=== PATIENT | female | born 1985 | race Caucasian/White ===

== ENCOUNTER 2017-04-26 07:58 | Emergency (ER) | payer BC ==
[2017-04-26 08:02] VITALS: BP 132/79; PULSE 98; TEMP 99.1; BMI 24.4
--- NOTE | 2017-04-26 08:45 | PDOC ---
History of Present Illness - General Chief Complaint: Redness To Affected Area Stated Complaint: EYE SWOLLEN Time Seen by Provider: 04/26/17 08:10 History Source: Patient Exam Limitations: No Limitations - History of Present Illness Initial Comments: 04/26/17 08:43 Patient is a 31 y/o female with no significant medical history, currently on no medication. Presents to the ER with swelling to the left side of the face. Patient states 2 days ago she used a facial scrub and mask from [employer] developed an erythematous area to left lateral nose woke up today with swelling under the left eye and left side of the face. She denies any difficulty swallowing, no chest pain or shortness of breath. Past Medical History: [Denies]. Allergies: No known allergies Medications: [None] Family History: Non-contributory Social History: Denies smoking, alcohol use, or IVDU Vital signs on arrival are [notable for pulse of 96.] Review of Systems GENERAL/CONSTITUTIONAL: [No fever or chills. No weakness. No weight change.] HEAD, EYES, EARS, NOSE AND THROAT: [No change in vision. No ear pain or discharge. No sore throat. Swelling to left side of face under I extending into upper cheek. There is a 3 cm skin avulsion to the left lateral nose. ] CARDIOVASCULAR: [No chest pain or shortness of breath.] RESPIRATORY: [No cough, wheezing, or hemoptysis.] GASTROINTESTINAL: [No nausea, vomiting, diarrhea or constipation. No rectal bleeding.] GENITOURINARY: [No dysuria, frequency, or change in urination.] MUSCULOSKELETAL: [No joint or muscle swelling or pain. No neck or back pain.] SKIN AND BREASTS: [No rash or easy bruising.] NEUROLOGIC: [No headache, vertigo, loss of consciousness, or loss of sensation.] PSYCHIATRIC: [No depression or anxiety.] ENDOCRINE: [No increased thirst. No abnormal weight change.] HEMATOLOGIC/LYMPHATIC: [No anemia, easy bleeding, or history of blood clots.] ALLERGIC/IMMUNOLOGIC: [No hives or skin allergy. No latex allergy.] Physical Exam: GENERAL: [The patient is awake, alert, and fully oriented, in no acute distress. ] HEAD: [Normal with no signs of trauma.] EYES: [Pupils equal, round and reactive to light, extraocular movements intact, sclera anicteric, conjunctiva clear.] ENT: [Ears normal, nares patent, oropharynx clear without exudates. Moist mucous membranes. No uvula deviation] NECK: [Normal range of motion, supple without lymphadenopathy, JVD, or masses.] LUNGS: [Breath sounds equal, clear to auscultation bilaterally. No wheezes, and no crackles.] HEART: [Regular rate and rhythm, normal S1 and S2 without murmur, rub or gallop. ] ABDOMEN: [Soft, nontender, normoactive bowel sounds. No guarding, no rebound. No masses. No bruising or abrasions] RECTAL : [Guaiac negative, normal rectal tone.] MUSCULOSKELETAL: [Normal range of motion, no edema. No clubbing or cyanosis. No cords, erythema, or tenderness. ] NEUROLOGICAL: [Cranial nerves II through XII grossly intact. Normal speech, normal gait.] PSYCH: [Normal mood, normal affect.] SKIN: Swelling to left side of face under I extending into upper cheek. There is a 3 cm skin avulsion to the left lateral nose Past History - Past Medical History Allergies/Adverse Reactions: Allergies Allergy/AdvReac Type Severity Reaction Status Date / Time Penicillins Allergy Swelling Verified 04/26/17 08:02 Home Medications: Ambulatory Orders Clindamycin [Cleocin -] 300 mg PO TID #30 capsule 04/26/17 Venlafaxine HCl [Effexor -] 25 mg PO ASDIR 04/26/17 COPD: No Other medical history: NONE - Suicide/Smoking/Psychosocial Hx Smoking Status: No Smoking History: Current every day smoker Number of Cigarettes Smoked Daily: 3 Information on smoking cessation initiated: Yes 'Breaking Loose' booklet given: 04/26/17 Hx Alcohol Use: Yes (SOCIAL) Drug/Substance Use Hx: No Substance Use Type: None *Physical Exam - Vital Signs Last Vital Signs Temp Pulse Resp BP Pulse Ox 99.1 F 98 H 18 132/79 99 04/26/17 07:59 04/26/17 07:59 04/26/17 07:59 04/26/17 07:59 04/26/17 07:59 Medical Decision Making - Medical Decision Making 04/27/17 17:34 A/P: Patient here with left-sided facial edema after using a facial mask. Because of edema, erythema, small first-degree burn to left lateral nose will send for CT scan rule out cellulitis. Patient with cellulitis without evidence of abscess will DC patient on antibiotics, bacitracin to first-degree burn to left lateral nose, follow-up with dermatology. Motrin for pain. If any increased erythema edema or evidence of increased cellulitis return to ER. Erythema and cellulitis is localized around nose not extending to lateral face. I discussed the physical exam findings, ancillary test results and final diagnoses with the patient. I answered all of the patient's questions. The patient was satisfied with the care received and felt comfortable with the discharge plan and treatment plan. The patient will call []within [] hours to arrange follow-up and will return to the Emergency Department with any new, persistent or worsening symptoms. *DC/Admit/Observation/Transfer Diagnosis at time of Disposition: Cellulitis Qualifiers: Site of cellulitis: face Qualified Code(s): L03.211 - Cellulitis of face - Discharge Dispostion Disposition: HOME Condition at time of disposition: Good Admit: No - Prescriptions Prescriptions: Clindamycin [Cleocin -] 300 mg PO TID #30 capsule - Referrals Referrals: STAFF,NOT ON [Primary Care Provider] - Chacorta Hu [Non Staff, Medical] - - Patient Instructions Printed Discharge Instructions: Cellulitis Additional Instructions: Please monitor area for any increased redness swelling, fever or other signs of infection. Motrin for pain Antibiotics as ordered, bacitracin topically. Follow up with dermatology for evaluation. - Post Discharge Activity Forms/Work/School Notes: Back to Work
[2017-04-26] MEDS ORDERED: BACITRACIN 15 GM TUBE TOPICAL OINTMENT TP ONE (09:59)
== END 2017-04-26 10:11 | disposition home or self-care (01) ==
LOC: JERFT 07:58
DX: L03.211 Cellulitis of face (principal); T20.14XA Burn of first degree of nose (septum), initial encounter; T49.8X1A Poisoning by other topical agents, accidental (unintentional), initial encounter; Y92.038 Other place in apartment as the place of occurrence of the external cause
CPT/HCPCS: 70486-TC; 84703; 99281-25

== ENCOUNTER 2017-08-01 16:51 | Emergency (ER) | payer BC ==
[2017-08-01 17:11] VITALS: BP 120/70; PULSE 91; TEMP 98; BMI 22.3
[2017-08-01] MEDS ORDERED: DIPHTH,PERTUSS(ACELL),TET 0.5 ML DISP.SYRIN IM ONE (17:47)
--- NOTE | 2017-08-01 17:53 | PDOC ---
History of Present Illness - General Chief Complaint: Laceration Stated Complaint: LACERATION Time Seen by Provider: 08/01/17 17:20 History Source: Patient Exam Limitations: No Limitations - History of Present Illness Initial Comments: 08/01/17 17:48 Grabbed wineglass last night which broke causing a laceration to the distal aspect of her left fourth digit. Washed with hydrogen peroxide and put a tight bandage on. But woke up today and felt wound was still to open , so came for treatment Occurred: reports: yesterday Severity: reports: mild Pain Location: reports: upper extremity (finger ) Modifying Factors: improves with: None Associated Symptoms (Fall): denies symptoms Past History - Travel Traveled outside of the country in the last 30 days: No Close contact w/someone who was outside of country & ill: No - Past Medical History Allergies/Adverse Reactions: Allergies Allergy/AdvReac Type Severity Reaction Status Date / Time Penicillins Allergy Swelling Verified 08/01/17 17:11 Home Medications: Ambulatory Orders Venlafaxine HCl [Effexor -] 25 mg PO ASDIR 04/26/17 COPD: No - Immunization History Immunization Up to Date: No - Suicide/Smoking/Psychosocial Hx Smoking Status: No Smoking History: Current every day smoker Number of Cigarettes Smoked Daily: 3 Information on smoking cessation initiated: No 'Breaking Loose' booklet given: 04/26/17 Hx Alcohol Use: Yes (SOCIAL) Drug/Substance Use Hx: No Substance Use Type: None Review of Systems - Review of Systems Able to Perform ROS?: No Is the patient limited Romanian proficient: No Constitutional: Yes: See HPI. No: Symptoms Reported HEENTM: No: Symptoms Reported Musculoskeletal: Yes: Symptoms Reported. No: Joint Pain Integumentary: Yes: Symptoms Reported, See HPI, Other (1 cm laceration to distal tip of finger, ) All Other Systems: Reviewed and Negative *Physical Exam - Vital Signs Last Vital Signs Temp Pulse Resp BP Pulse Ox 98 F 91 H 18 120/70 99 08/01/17 17:07 08/01/17 17:07 08/01/17 17:07 08/01/17 17:07 08/01/17 17:07 - Physical Exam General Appearance: Yes: Nourished, Appropriately Dressed. 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, Fully Oriented, Alert, Normal Mood/ Affect, Normal Response, Motor Strength 5/5 Procedures - Laceration/Wound Repair Left Dorsal Finger Wound Length: to 2.5 cm Wound Explored: clean Wound's Depth, Shape: linear Irrigated w/ Saline: Yes Betadine Prep: Yes Anesthesia: 1% Lidocaine Wound Repaired With: Sutures Suture Size/Type: 5:0 Number of Sutures: 2 Layer Closure: No Splint Applied: Yes *DC/Admit/Observation/Transfer Diagnosis at time of Disposition: Laceration - Discharge Dispostion Disposition: HOME Condition at time of disposition: Stable Admit: No - Referrals - Patient Instructions Printed Discharge Instructions: DI for Laceration Repair Additional Instructions: Rest, elevate, avoid strenuous activity or heavy lifting until sutures are removed Leave dressing on for the next 24 hours, Then may remove dressing gently and wash area with soap and water. Reapply bacitracin ointment and dressing daily for the next 5 days On day #6 keep the wound protected and cover as needed until sutures are removed allowing wound to start to dry May use Tylenol or Motrin for pain relief Your tetanus/diphtheria/pertussis booster was updated today Suture removal in : 10-14 Days - Post Discharge Activity Forms/Work/School Notes: Back to Work
== END 2017-08-01 18:08 | disposition home or self-care (01) ==
LOC: JERFT 16:51
PROC: 0HQGXZZ Repair Left Hand Skin, External Approach (ICD-10-PCS; principal; 2017-08-01)
DX: S61.215A Laceration without foreign body of left ring finger without damage to nail, initial encounter (principal); W25.XXXA Contact with sharp glass, initial encounter; Y93.89 Activity, other specified; Y92.89 Other specified places as the place of occurrence of the external cause; Y99.8 Other external cause status
CPT/HCPCS: 12001; 90715; 99281-25

== ENCOUNTER 2019-04-27 16:45 | Emergency (ER) | payer BC, OTHER ==
--- NOTE | 2019-04-27 17:03 | PDOC ---
Rapid Medical Evaluation Time Seen by Provider: 04/27/19 16:59 Medical Evaluation: Allergies Allergy/AdvReac Type Severity Reaction Status Date / Time Penicillins Allergy Swelling Verified 08/01/17 17:11 04/27/19 17:02 Pt presents for evaluation of a rash on her face after using cleaning supplies ( dry dusting supplies). Only known allergy is penicillin Exam: Red, excoriated rash over the R eye/forehead. Wheel also present over the R eyelid Orders: Nothing Pt to proceed to the ER for further evaluation Discharge Disposition - Diagnosis Rash - Referrals - Patient Instructions - Post Discharge Activity
[2019-04-27 17:05] VITALS: BP 118/54; PULSE 79; TEMP 98.4; BMI 21.2
[2019-04-27] MEDS ORDERED: CLINDAMYCIN HCL 300 MG CAPSULE PO ONE (17:33)
[2019-04-27] MEDS ORDERED: CLINDAMYCIN HCL 150 MG CAPSULE (FP) ONE (17:42)
--- NOTE | 2019-04-27 17:44 | PDOC ---
History of Present Illness - General Chief Complaint: Allergic Reaction Stated Complaint: SKIN REDNESS Time Seen by Provider: 04/27/19 16:59 History Source: Patient - History of Present Illness Timing/Duration: reports: other Past History - Past Medical History Allergies/Adverse Reactions: Allergies Allergy/AdvReac Type Severity Reaction Status Date / Time Penicillins Allergy Swelling Verified 08/01/17 17:11 Home Medications: Ambulatory Orders Venlafaxine HCl [Effexor -] 25 mg PO ASDIR 04/26/17 Clindamycin [Cleocin -] 300 mg PO Q6HPO #27 capsule 04/27/19 COPD: No - Immunization History Immunization Up to Date: No - Psycho Social/Smoking Cessation Hx Smoking Status: No Smoking History: Never smoked Have you smoked in the past 12 months: No Number of Cigarettes Smoked Daily: 3 Information on smoking cessation initiated: No 'Breaking Loose' booklet given: 04/26/17 Hx Alcohol Use: No Drug/Substance Use Hx: No Substance Use Type: None Review of Systems - Review of Systems Constitutional: No: Chills, Fever HEENTM: Yes: Other Neurological: No: Headache, Dizziness *Physical Exam - Vital Signs Last Vital Signs Temp Pulse Resp BP Pulse Ox 98.4 F 79 18 118/54 L 99 04/27/19 17:02 04/27/19 17:02 04/27/19 17:02 04/27/19 17:02 04/27/19 17:02 - Physical Exam General Appearance: Yes: Appropriately Dressed. No: Apparent Distress HEENT: positive: Normal Voice, Other (scab w/ dried yellow secretion to R forehead w/ mild erythema and edema extending into to R tate-orbital area and onto R nasal bridge, conjunc clear w/ EOMI, no tearing or discharge) Medical Decision Making - Medical Decision Making 04/27/19 17:39 33-year-old female, no significant history, here with R periorbital swelling with redness and pain. Patient states 2 days ago she noticed 1 large blister to R forehead but does not remember an obvious injury and no bites, burn or obvious inciting factors States yesterday blister spontaneously ruptured with clear secretion and at some point noticed redness extending to R periorbital area with swelling and some discomfort. Denies any itching. No pain inside eye , tearing, photophobia or visual change see exam Concerned for R periorbital cellulitis, no e/o orbital involvement, less likely allergic rxn or shingles Stable here First dose clinda given, pen allergic (edema) -Dc w/ wound check in 2 days, to return sooner if sxs worsen while on abx Discharge - Discharge Information Problems reviewed: Yes Clinical Impression/Diagnosis: Periorbital cellulitis of right eye Condition: Good Disposition: HOME - Additional Discharge Information Prescriptions: Clindamycin [Cleocin -] 300 mg PO Q6HPO #27 capsule - Follow up/Referral Referrals: Chelo Penny [Primary Care Provider] - - Patient Discharge Instructions Patient Printed Discharge Instructions: Cellulitis Additional Instructions: It appears that you may have an infection to tissue surrounding your eye. Please take antibiotics as directed and return in 2 days for wound assessment Return immediately if symptoms of fever to be worsening while on antibiotics - Post Discharge Activity
== END 2019-04-27 17:52 | disposition home or self-care (01) ==
LOC: JERFT 16:45
DX: L03.213 Periorbital cellulitis (principal); Z88.0 Allergy status to penicillin
CPT/HCPCS: 99282-25